=== PATIENT | female | born 2005 | race Two or more races ===

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

== ENCOUNTER 2023-09-02 20:56 | Emergency (ER) | payer MEDICAID ==
[~2023-09-02] VITALS: Ht 160 cm; Wt 67.3 kg
[~2023-09-02 20:56] MED LIST changes: +IBUP-1456 PO; -IBUP800T27 PO; +METO-281 PO; +OMEP20TA PO
[2023-09-02 21:20] LABS: Basophils # (auto) 0 10 ^3/uL (0-0.2); Basophils % (auto) 0.4 % (0.0-2.0); Eosinophils # (auto) 0.1 10 ^3/uL (0-0.8); Eosinophils % (auto) 0.5 % (0.0-7.0); Hematocrit 45.3 % (36.0-46.0); Hemoglobin 14.9 g/dL (12.2-16.2); Lymphocytes # (auto) 2.2 10 ^3/uL (0.4-5.4); Mean Corpuscular Hemoglobin 27.5 pg (28.0-32.0); Mean Corpuscular Hgb Conc. 32.9 g/dL (32.0-36.0); Mean Corpuscular Volume 83.5 fL (80.0-100.0); Monocytes # (auto) 0.7 10 ^3/uL (0-1.3); Monocytes % (auto) 7.4 % (0.0-12.0); Neutrophils # (auto) 6.8 10 ^3/uL (1.6-8.6); Neutrophils % (auto) 69.7 % (37.0-80.0); Nucleated Red Blood Cells % 0.1 %; Red Blood Cells 5.42 10^6/uL (4.0-5.20); Red Cell Distribution Width 14.5 % (11.8-14.3); White Blood Cell 9.8 10^3/uL (4.4-10.8)
[2023-09-02 21:38] LABS: Alanine Aminotransferase 12 U/L (7-40); Albumin 4.7 g/dL (3.2-4.8); Alkaline Phosphatase 62 U/L (46-116); Anion Gap 8 (5-15); Aspartate Aminotransferase 10 U/L (13-40); BUN/Creatinine Ratio 17.8 (10.0-20.0); Blood Urea Nitrogen 13 mg/dL (9-23); Carbon Dioxide 25 mmol/L (20-30); Chloride 104 mmol/L (98-107); Glucose 122 mg/dL (74-106); Potassium 3.8 mmol/L (3.5-5.1); Sodium 137 mmol/L (136-145)
[2023-09-02 21:39] LABS: Bilirubin, Total 0.7 mg/dL (0.2-1.0)
[2023-09-02 21:45] LABS: INR 1.29 (0.9-1.15); Partial Thromboplastin Time 26.3 SEC (24.5-34.5); Prothrombin Time 13.4 sec (9.3-11.8)
[2023-09-03] MEDS ORDERED: OMEP-335 PO (00:22)
[2023-09-03 01:10] VITALS: BP 105/61; PULSE 98; RESP 18; TEMP 98.3; O2SAT 98
[2023-09-03] MEDS: DexAMETHasone SOD PHOS 10MG/1ML VIAL INJ IM ONE (01:13)
[2023-09-03] MEDS: PANTOPRAZOLE 40 MG TAB PO ONE (01:14)
== END 2023-09-03 01:33 | disposition home or self-care (01) ==
LOC: ER 20:56
DX: K21.9 Gastro-esophageal reflux disease without esophagitis (principal); R42 Dizziness and giddiness; Z79.1 Long term (current) use of non-steroidal anti-inflammatories (NSAID); Z79.899 Other long term (current) drug therapy
CPT/HCPCS: 36415; 71045; 71250; 74176; 76705; 80053; 83690; 83735; 84484; 85025; 85610; 85730; 93005; 96372; 99285; J1100